=== PATIENT | male | born 2000 | race Caucasian/White ===

== ENCOUNTER 2023-05-03 22:39 | Emergency (ER) | payer BC ==
[~2023-05-03] VITALS: Ht 182.9 cm; Wt 99.8 kg
[2023-05-03 22:55] VITALS: BP 167/76; TEMP 98.4; O2SAT 98
== END 2023-05-03 23:23 | disposition home or self-care (01) ==
LOC: ER 22:47
DX: U07.1 COVID-19 (principal); F41.9 Anxiety disorder, unspecified; Z87.442 Personal history of urinary calculi; Z88.0 Allergy status to penicillin
CPT/HCPCS: 71045-TC